=== PATIENT | female | born 1945 | race Caucasian/White ===

== ENCOUNTER 2022-07-22 13:36 | Emergency (ER) | payer MEDICARE, OTHER ==
[~2022-07-22] VITALS: Ht 170.2 cm; Wt 79.4 kg
[2022-07-22] MEDS ORDERED: morphine INJ 10 MG/ML 1ML (SYR OR VIAL) IVP STA (13:59)
--- NOTE | 2022-07-22 13:59 | ED Abdominal Pain ---
General Chief Complaint: Back Problems Stated Complaint: RT FLANK/SUPRAPUBIC PAIN; NAUSEA Source of Information: Patient Exam Limitations: No Limitations History of Present Illness Date Seen by Provider: Jul 22, 2022 Time Seen by Provider: 13:38 Initial Comments 77-year-old female with past medical history of Crohn's (well controlled on Humira), HTN, HLD, and recurrent abdominal pain s/p cholecystectomy and appendectomy coming in due to right lower quadrant pain as well as right flank pain. Started a couple hours ago, constant, sharp, nothing really seems to make it better or worse. Had some nausea but no vomiting. Had a normal bowel movement that was nonbloody several hours ago which did not change the pain. Denies any dysuria, but does endorse some urinary frequency. No hematuria associated with it. Otherwise denies any fever, chest pain, shortness of breath, weakness, numbness, rash, diarrhea, or any other concerns. Allergies and Home Medications Allergies Coded Allergies: prochlorperazine (Verified Allergy, Unknown, 07/22/22) Patient Home Medication List Home Medication List Reviewed: Yes Cefdinir (Cefdinir) 300 Mg Capsule, 300 MG PO BID Prescribed by: JUSTO TARANGO on 07/22/22 154 Ondansetron (Ondansetron Odt) 4 Mg Tab.rapdis, 4 MG SL Q6H PRN for NAUSEA/VOMITING Prescribed by: JUSTO TARANGO on 07/22/221541 Oxycodone HCl (Oxycodone HCl) 5 Mg Tablet, 5 MG PO Q6H PRN for PAIN-SEVERE (8- 10) Prescribed by: JUSTO TARANGO on 07/22/221541 Tamsulosin HCl (Flomax) 0.4 Mg Cap, 0.4 MG PO DAILY Prescribed by: JUSTO TARANGO on 07/22/22 154 Review of Systems Review of Systems Constitutional: No fever EENTM: No Symptoms Reported Respiratory: No Symptoms Reported Cardiovascular: No Symptoms Reported Gastrointestinal: See HPI Genitourinary: See HPI Musculoskeletal: no symptoms reported Skin: no symptoms reported Psychiatric/Neurological: No Symptoms Reported Endocrine: No Symptoms Reported Hematologic/Lymphatic: No Symptoms Reported All Other Systems Reviewed Negative Unless Noted: Yes Past Dnsrbhr-Nsrszs-Bazabj Hx Patient Social History Tobacco Use?: No Past Medical History Surgery/Hospitalization HX: partial bowel resection Surgeries: Yes Appendectomy, Gallbladder Physical Exam Vital Signs Vital Signs - First Documented 07/22/22 07/22/22 13:41 15:48 Temp 36.0 Pulse 83 Resp 18 B/P (MAP) 156/83 (107) Pulse Ox 97 O2 Delivery Room Air Capillary Refill : Height/Weight/BMI Height: '" Weight: lbs. oz. kg; BMI Method: General Appearance: WD/WN, mild distress HEENT: PERRL/EOMI, normal ENT inspection, pharynx normal Neck: non-tender, full range of motion, supple, normal inspection Respiratory: chest non-tender, lungs clear, normal breath sounds, no respiratory distress, no accessory muscle use Cardiovascular: regular rate, rhythm, no edema, no murmur Gastrointestinal: normal bowel sounds, soft; No distended, No guarding, No rebound; tenderness Extremities: normal range of motion, non-tender, normal inspection, no pedal edema, no calf tenderness, normal capillary refill Back: normal inspection, no CVA tenderness Neurologic/Psychiatric: no motor/sensory deficits, alert, normal mood/affect Skin: normal color, warm/dry Lymphatic: no adenopathy Focused Exam Lactate Level 07/22/22 14:01: Lactic Acid Level 1.64 Lactic Acid Level Laboratory Tests Test 07/22/22 14:01 Lactic Acid Level 1.64 MMOL/L (0.50-2.00) Progress/Results/Core Measures Results/Orders Lab Results Laboratory Tests Test 07/22/22 14:01 07/22/22 14:12 Range/Units White Blood Count 6.1 4.3-11.0 10^3/uL Red Blood Count 4.23 3.80-5.11 10^6/uL Hemoglobin 12.9 11.5-16.0 g/dL Hematocrit 39 35-52 % Mean Corpuscular Volume 92 80-99 fL Mean Corpuscular Hemoglobin 31 25-34 pg Mean Corpuscular Hemoglobin Concent 33 32-36 g/dL Red Cell Distribution Width 13.2 10.0-14.5 % Platelet Count 212 130-400 10^3/uL Mean Platelet Volume 9.7 9.0-12.2 fL Immature Granulocyte % (Auto) 0 % Neutrophils (%) (Auto) 49 42-75 % Lymphocytes (%) (Auto) 40 12-44 % Monocytes (%) (Auto) 10 0-12 % Eosinophils (%) (Auto) 1 0-10 % Basophils (%) (Auto) 0 0-10 % Neutrophils # (Auto) 3.0 1.8-7.8 10^3/uL Lymphocytes # (Auto) 2.4 1.0-4.0 10^3/uL Monocytes # (Auto) 0.6 0.0-1.0 10^3/uL Eosinophils # (Auto) 0.1 0.0-0.3 10^3/uL Basophils # (Auto) 0.0 0.0-0.1 10^3/uL Immature Granulocyte # (Auto) 0.0 0.0-0.1 10^3/uL Erythrocyte Sedimentation Rate 33 H 0-30 MM/HR Sodium Level 139 135-145 MMOL/L Potassium Level 3.5 L 3.6-5.0 MMOL/L Chloride Level 101 98-107 MMOL/L Carbon Dioxide Level 28 21-32 MMOL/L Anion Gap 10 5-14 MMOL/L Blood Urea Nitrogen 15 7-18 MG/DL Creatinine 1.24 0.60-1.30 MG/DL Estimat Glomerular Filtration Rate 45 BUN/Creatinine Ratio 12 Glucose Level 127 H 70-105 MG/DL Lactic Acid Level 1.64 0.50-2.00 MMOL/L Calcium Level 9.4 8.5-10.1 MG/DL Corrected Calcium 9.2 8.5-10.1 MG/DL Total Bilirubin 1.2 H 0.1-1.0 MG/DL Aspartate Amino Transf (AST/SGOT) 25 5-34 U/L Alanine Aminotransferase (ALT/SGPT) 19 0-55 U/L Alkaline Phosphatase 64 40-136 U/L C-Reactive Protein < 0.30 <0.50 MG/DL Total Protein 7.6 6.4-8.2 GM/DL Albumin 4.2 3.2-4.5 GM/DL Lipase 43 8-78 U/L Urine Color PALE YELLOW Urine Clarity CLOUDY Urine pH 8.0 5-9 Urine Specific [place] 1.015 L 1.016-1.022 Urine Protein NEGATIVE NEGATIVE Urine Glucose (UA) NEGATIVE NEGATIVE Urine Ketones NEGATIVE NEGATIVE Urine Nitrite NEGATIVE NEGATIVE Urine Bilirubin NEGATIVE NEGATIVE Urine Urobilinogen 0.2 < = 1.0 MG/DL Urine Leukocyte Esterase TRACE H NEGATIVE Urine RBC (Auto) NEGATIVE NEGATIVE Urine RBC NONE /HPF Urine WBC 0-2 /HPF Urine Squamous Epithelial Cells 0-2 /HPF Urine Crystals NONE /LPF Urine Bacteria MODERATE H /HPF Urine Casts NONE /LPF Urine Mucus NEGATIVE /LPF Urine Culture Indicated NO My Orders Orders - JUSTO TARANGO MD Erythrocyte Sedimentation Rate (07/22/22 13:59) Lactic Acid Analyzer (07/22/22 13:59) Crp Fs (07/22/22 13:59) Comprehensive Metabolic Panel (07/22/22 13:59) Lipase (07/22/22 13:59) Ua Culture If Indicated (07/22/22 13:59) Ed Iv/Invasive Line Start (07/22/22 13:59) Cbc With Automated Diff (07/22/22 13:59) Ct Abdomen/Pelvis W (07/22/22 13:59) Morphine Injection (Morphine Injection (07/22/22 13:59) Ondansetron Injection (Zofran Injectio (07/22/22 14:00) Ns Iv 500 Ml (Sodium Chloride 0.9%) (07/22/22 14:00) Iohexol Injection (Omnipaque 350 Mg/Ml 1 (07/22/22 14:45) Received Contrast (Hold Metformin- Contr (07/22/22 14:45) Ns (Ivpb) (Sodium Chloride 0.9% Ivpb Bag (07/22/22 14:45) Sodium Chloride Flush (Catheter Flush Sy (07/22/22 14:45) Ceftriaxone 1 Gm Pre-Mix (Rocephin 1 Gm (07/22/22 15:30) Oxycodone Immediate Rel Tablet (Oxyir Ta (07/22/22 15:30) Medications Given in ED Current Medications Medications Dose Ordered Sig/Ct Route Start Time Stop Time Status Last Admin Dose Admin Ceftriaxone Sodium/Dextrose 50 ml @ 100 mls/hr ONCE ONCE IV 07/22/22 15:30 07/22/22 15:48 DC 07/22/22 15:36 100 MLS/HR Iohexol 100 ml ONCE ONCE IV 07/22/22 14:45 07/22/22 14:46 DC 07/22/22 14:53 80 ML Ondansetron HCl 4 mg ONCE ONCE IVP 07/22/22 14:00 07/22/22 14:02 DC 07/22/22 14:13 4 MG Oxycodone HCl 5 mg ONCE ONCE PO 07/22/22 15:30 07/22/22 15:31 DC 07/22/22 15:36 5 MG Sodium Chloride 100 ml ONCE ONCE IV 07/22/22 14:45 07/22/22 14:46 DC 07/22/22 14:53 100 ML Sodium Chloride 500 ml @ 0 mls/hr Q0M ONCE IV 07/22/22 14:00 07/22/22 14:02 DC 07/22/22 14:13 999 MLS/HR Vital Signs/I&O 07/22/22 07/22/22 13:41 15:48 Temp 36.0 37.0 Pulse 83 76 Resp 18 17 B/P (MAP) 156/83 (107) 139/89 Pulse Ox 97 O2 Delivery Room Air Room Air Progress Progress Note : Progress Note 77-year-old female coming in due to right flank pain and right lower abdominal pain. ABCs were intact and vitals were stable on presentation. Physical exam with tenderness in the right lower quadrant but no signs of peritonitis. An IV was placed and basic labs were obtained including lactic acid and inflammatory markers. Lactic acid normal, white blood cell count normal, CRP undetectably low, and ESR just above normal at 33 which is all reassuring, and less likely this is Crohn's related or ischemic bowel. CT abdomen and pelvis with a 2 mm obstructing ureteral stone with hydronephrosis and likely calyceal rupture but no abscess. I discussed these findings with the patient and discussed she needs to follow-up with a urologist. We will treat her with IV ceftriaxone here as well given her urinalysis does have bacteria and leukocyte esterase. Patient otherwise well-appearing and pain significantly improved after a dose of morphine IV. I believe she is stable for discharge with outpatient follow-up, she is tolerating p.o. and I believe would tolerate a trial of passage at home. Diagnostic Imaging Diagonstic Imaging: CT (abd/pelvis) Comments [facility] [place], [place] NAME: SHAYAN GIBSON [facility] REC#: [id number] PT STATUS: REG ER : 1945 PHYSICIAN: JUSTO TARANGO MD ADMIT DATE: 07/22/22/ER FS Draft Date of Exam:07/22/22 CT ABDOMEN/PELVIS W CT ABDOMEN/PELVIS W TECHNIQUE: Multiple contiguous axial images were obtained through the abdomen and pelvis after administration of intravenous contrast. All CT scans use one or more of the following dose optimizing techniques: automated exposure control, MA and/or KvP adjustment based on patient size and exam type or iterative reconstruction. INDICATION: Right flank pain COMPARISON: None available. FINDINGS: Lower chest: Large paraesophageal hiatal hernia with the majority the stomach located in the chest. There is centrilobular micronodules in the right lower lobe that are likely due to aspiration from large hiatal hernia. Peritoneum: No free intraperitoneal air. Liver and biliary system: The liver is normal. Cholecystectomy. Mild dilation of common bile duct is likely due to reservoir effect from post cholecystectomy state. There is a air filled diverticulum arising from the 2nd portion duodenum at the level the ampulla that does cause mild mass effect on the distal common bile duct. Spleen and Pancreas: Spleen is normal. The pancreas enhances normally without mass lesion or peripancreatic inflammatory changes. Adrenals: Normal. tract: Perinephric stranding is present around the upper pole of the right kidney and around the right ureter. This is likely due to calyceal rupture as there is partial obstruction from a 2 mm stone in the distal right ureter at the level of the UVJ. There is also mild delayed enhancement within the right renal parenchyma compatible with elevated pressures from the obstruction. Left kidney enhances normally and has a partially duplicated collecting system. Urinary bladder is normally filled without wall thickening. Hysterectomy. No adnexal mass. GI tract: Hiatal hernia as detailed above. No bowel obstruction. No pericolonic inflammatory changes. Prior appendectomy. Vasculature and Lymph nodes: Normal caliber aorta. No abdominal or pelvic lymphadenopathy. Musculoskeletal: No concerning osseous lesion. IMPRESSION: 1. Mild right hydronephrosis and hydroureter due to an obstructing 2 mm stone at the right UVJ. Perinephric stranding is likely due to calyceal rupture from the obstruction. However, there is no fluid collection or abscess. 2. Large paraesophageal hiatal hernia with the majority of the stomach located in the chest. 3. Right lower lobe cellular bronchiolitis is likely due to aspiration associated with a large hiatal hernia. Dictated on workstation # [id number] Dict: 07/22/22 1510 Trans: 07/22/22 1516 [facility] [id number] Interpreted by: CARIE BURNHAM MD Electronically signed by: Departure Impression Primary Impression: Ureterolithiasis Additional Impression: Hiatal hernia Disposition: 01 HOME, SELF-CARE Condition: Stable Departure-Patient Inst. Decision time for Depature: 15:55 Referrals: DUNG GIL DO (PCP) Primary Care Physician Patient Instructions: Kidney Stone, Adult ED, Hiatal Hernia (DC) Add. Discharge Instructions: You do have a kidney stone on the right which is 2 mm and likely will pass. I do want you to follow-up with a urologist of your choosing, unfortunately there is not one within our hospital system at this time. You can call Aysha Gaston at [phone], Jerald Gaston at [phone], or any other urologist office. Please try to make an appointment [facility] today. Take Tylenol as needed for pain, for pain on top of that you can take the oxycodone that was sent. You will also be on antibiotics for the next 10 days. If you develop fever within the next 24 hours I would want you to be seen by a doctor sooner. Of note, we also saw a large hiatal hernia which is essentially a hernia where your stomach goes up through your diaphragm into your chest. Some people never have symptoms with this, but some people have heartburn-like symptoms and upper abdominal discomfort. If you develop the symptoms, consult with your doctor as you may need a referral to a surgeon to discuss options. Scripts Ondansetron (Ondansetron Odt) 4 Mg Tab.rapdis 4 MG SL Q6H PRN for NAUSEA/VOMITING for 5 Days, #20 TAB Prov: JUSTO TARANGO MD 07/22/22 Cefdinir (Cefdinir) 300 Mg Capsule 300 MG PO BID for 10 Days, #20 CAP 0 Refills Prov: JUSTO TARANGO MD 07/22/22 Tamsulosin HCl (Flomax) 0.4 Mg Cap 0.4 MG PO DAILY for 14 Days, #14 CAP Prov: JUSTO TARANGO MD 07/22/22 Oxycodone HCl (Oxycodone HCl) 5 Mg Tablet 5 MG PO Q6H PRN for PAIN-SEVERE (8-10) for 3 Days, #12 TAB Prov: JUSTO TARANGO MD 07/22/22 JUSTO TARANGO MD Jul 22, 2022 13:59
[2022-07-22] MEDS ORDERED: NS IV 500 ML 500 ML IV ONE (14:00)
[2022-07-22] MEDS ORDERED: ONDANSETRON 4 MG/2 ML (SDV) Z0FRAN IVP ONE (14:00)
[2022-07-22 14:09] LABS: BASOPHILS % (AUTO) 0 % (0-10); EOSINOPHILS # (AUTO) 0.1 10^3/uL (0.0-0.3); EOSINOPHILS % (AUTO) 1 % (0-10); HEMATOCRIT 39 % (35-52); HEMOGLOBIN 12.9 g/dL (11.5-16.0); LYMPHOCYTES # (AUTO) 2.4 10^3/uL (1.0-4.0); LYMPHOCYTES % (AUTO) 40 % (12-44); MEAN CORPUSCULAR HEMOGLOBIN 31 pg (25-34); MEAN CORPUSCULAR HGB CONC 33 g/dL (32-36); MEAN CORPUSCULAR VOLUME 92 fL (80-99); MEAN PLATELET VOLUME 9.7 fL (9.0-12.2); MONOCYTES # (AUTO) 0.6 10^3/uL (0.0-1.0); MONOCYTES % (AUTO) 10 % (0-12); NEUTROPHILS % (AUTO) 49 % (42-75); PLATELET COUNT 212 10^3/uL (130-400); WHITE BLOOD COUNT 6.1 10^3/uL (4.3-11.0)
[2022-07-22 14:20] LABS: BILIRUBIN,URINE NEGATIVE (NEGATIVE); CLARITY,URINE CLOUDY; GLUCOSE, URINE (UA) NEGATIVE (NEGATIVE); KETONES,URINE NEGATIVE (NEGATIVE); LEUKOCYTE ESTERASE ,URINE TRACE (NEGATIVE); NITRITE,URINE NEGATIVE (NEGATIVE); PROTEIN,URINE NEGATIVE (NEGATIVE)
[2022-07-22 14:26] LABS: BACTERIA,URINE MODERATE /HPF; COLOR,URINE PALE YELLOW; SQUAMOUS EPITHELIAL CELL,UR 0-2 /HPF; WBC,URINE 0-2 /HPF
[2022-07-22 14:33] LABS: BILIRUBIN,TOTAL 1.2 MG/DL (0.1-1.0); CALCIUM 9.4 MG/DL (8.5-10.1); CREATININE SERUM 1.24 MG/DL (0.60-1.30); POTASSIUM 3.5 MMOL/L (3.6-5.0); TOTAL PROTEIN 7.6 GM/DL (6.4-8.2)
[2022-07-22 14:34] LABS: ALBUMIN 4.2 GM/DL (3.2-4.5)
[2022-07-22] MEDS ORDERED: HOLD METFORMIN - RECEIVED CONTRAST 20 ML VIAL IV SCH (14:45)
[2022-07-22] MEDS ORDERED: IOHEXOL 350 MG/ML 100 ML (OMNIPAQUE 350) VIAL IV ONE (14:45)
[2022-07-22] MEDS ORDERED: CATHETER FLUSH 10 ML SYR IV PRN (14:45)
[2022-07-22] MEDS ORDERED: NS 100 ML (IVPB) BAG IV ONE (14:45)
--- NOTE | 2022-07-22 15:17 | Diagnostic Imaging Report ---
CT ABDOMEN/PELVIS W TECHNIQUE: Multiple contiguous axial images were obtained through the abdomen and pelvis after administration of intravenous contrast. All CT scans use one or more of the following dose optimizing techniques: automated exposure control, MA and/or KvP adjustment based on patient size and exam type or iterative reconstruction. INDICATION: Right flank pain COMPARISON: None available. FINDINGS: Lower chest: Large paraesophageal hiatal hernia with the majority the stomach located in the chest. There is centrilobular micronodules in the right lower lobe that are likely due to aspiration from large hiatal hernia. Peritoneum: No free intraperitoneal air. Liver and biliary system: The liver is normal. Cholecystectomy. Mild dilation of common bile duct is likely due to reservoir effect from post cholecystectomy state. There is a air filled diverticulum arising from the 2nd portion duodenum at the level the ampulla that does cause mild mass effect on the distal common bile duct. Spleen and Pancreas: Spleen is normal. The pancreas enhances normally without mass lesion or peripancreatic inflammatory changes. Adrenals: Normal. tract: Perinephric stranding is present around the upper pole of the right kidney and around the right ureter. This is likely due to calyceal rupture as there is partial obstruction from a 2 mm stone in the distal right ureter at the level of the UVJ. There is also mild delayed enhancement within the right renal parenchyma compatible with elevated pressures from the obstruction. Left kidney enhances normally and has a partially duplicated collecting system. Urinary bladder is normally filled without wall thickening. Hysterectomy. No adnexal mass. GI tract: Hiatal hernia as detailed above. No bowel obstruction. No pericolonic inflammatory changes. Prior appendectomy. Vasculature and Lymph nodes: Normal caliber aorta. No abdominal or pelvic lymphadenopathy. Musculoskeletal: No concerning osseous lesion. IMPRESSION: 1. Mild right hydronephrosis and hydroureter due to an obstructing 2 mm stone at the right UVJ. Perinephric stranding is likely due to calyceal rupture from the obstruction. However, there is no fluid collection or abscess. 2. Large paraesophageal hiatal hernia with the majority of the stomach located in the chest. 3. Right lower lobe cellular bronchiolitis is likely due to aspiration associated with a large hiatal hernia. Dictated by: Dictated on workstation # [id number]
[2022-07-22] MEDS ORDERED: cefTRIAXone 1 GM PRE-MIX 50 ML IV ONE (15:30)
[2022-07-22] MEDS ORDERED: TMSL.4C PO (15:42)
[2022-07-22] MEDS ORDERED: CEFD300C3 PO (15:42)
[2022-07-22] MEDS ORDERED: OXYC5TAB PO (15:42)
[2022-07-22] MEDS ORDERED: ONDA4TAB11 SL (15:42)
[2022-07-22 15:48] VITALS: BP 139/89
== END 2022-07-22 15:48 | disposition home or self-care (01) ==
LOC: ER FS 13:39
DX: N13.2 Hydronephrosis with renal and ureteral calculous obstruction (principal); K44.9 Diaphragmatic hernia without obstruction or gangrene; Z90.49 Acquired absence of other specified parts of digestive tract
CPT/HCPCS: 36415; 74177; 80053; 81000; 83605; 83690; 85025; 85652; 86141; Q9967

== ENCOUNTER → 2022-07-23 | Outpatient (CLI) | payer MEDICARE ==
[~2022-07-23] MED LIST: CEFD300C3 PO; ONDA4TAB11 SL; OXYC5TAB PO; TMSL.4C PO
--- NOTE | 2022-07-23 19:24 | Diagnostic Imaging Report ---
EXAMINATION: Abdomen 2 view HISTORY: Flank pain COMPARISON: 07/22/2022 FINDINGS: There is a moderate amount of gas and stool throughout the colon. Nonobstructive bowel gas pattern. There is a 1.0 cm opacity overlying the left upper pelvis/lower abdomen which likely corresponds to a sclerotic lesion within the left hip seen on prior exam. No other suspicious radiopaque foreign body. The lung bases are clear. The osseous structures are intact. IMPRESSION: Moderate stool burden without other acute abnormality in the abdomen. Dictated by: Dictated on workstation # [id number]
== END ==
LOC: RAD FS 18:14
PROVIDERS: ATTEND Emergency Medicine
DX: N13.0 Hydronephrosis with ureteropelvic junction obstruction (principal); N20.1 Calculus of ureter
CPT/HCPCS: 74019